=== PATIENT | female | born 1950 | race Caucasian/White ===

== ENCOUNTER 2018-09-16 11:21 | Emergency (ER) | payer MEDICARE ==
[~2018-09-16] VITALS: Ht 152.4 cm; Wt 90.0 kg
[~2018-09-16 11:21] MED LIST: ACETAMINOPHEN500 M1; AMBIEN5 MG PO; AVELOX400 MG PO; BAYER ASA325 MG PO; BUSPIRONE5 MG OR; CELEXA20 MG OR; CLONAZEPAM1 MG PO; CYCLOBENZAPR10 MG OR; FUROSEMIDE20 MG PO; GABAPENTIN300 MG PO; GLIPIZIDE5 MG PO; GLYB/METFO5 MG/500 M OR; IMDUR30 MG PO; ISOSORB DIN30 MG PO; ISOSORB MONO30 MG OR; KLOR-CON 1010 ME1 OR; KLOR-CON 1010 ME1 PO; LASIX 20 MG20 MG/TAB PO; LEVOTHYROXIN50 MCG OR; MAXZIDE-25MG1 COMBO PO; MEDROL4 M1 PO; METFORMIN1000 MG PO; METFORMIN500 MG PO; METOPROL TAR25 MG OR; METOPROL TAR50 MG PO; MIRAPEX0.125 MG PO; MIRTAZAPINE15 MG PO; MIRTAZAPINE30 MG PO; NAPROSYN500 MG PO; PREDNISONE20 MG PO; PROVENTIL0.083 % IN; REQUIP0.25 MG OR; SIMVASTATIN40 MG PO; SYNTHROID50 MCG PO; TRAZODONE50 MG OR; TRIAM/HCTZ1 CAP OR; TRILEPTAL150 M1 OR; TRILEPTAL300 MG PO; ULTRAM50 M1 PO; VALIUM5 MG PO; ZOCOR20 MG OR; [UNRECOGNIZED DRUG - SUPPLY]
[2018-09-16 11:36] LABS: GFR > 60 ML/MIN (>=60 (CALC)); GFR FOR AFR.AMER. > 60 ML/MIN (>=60 (CALC))
[2018-09-16 11:47] LABS: HEMATOCRIT 45.4 % (37.0-47.0); HEMOGLOBIN 14.8 g/dl (12.0-16.0); IMMATURE GRANULOCYTES 0.5 % (0.0-5.0); MEAN CELL VOLUME 88.7 fL CALC (80.0-100.0); MEAN CORPUSCULAR HGB 28.9 pG CALC (26.0-32.0); MEAN CORPUSCULAR HGB CONC 32.6 g/L CALC (32.0-36.0); NEUT# 6.72 thou/uL (2.00-7.15); RED BLOOD COUNT 5.12 mill/uL (4.20-5.60); RED CELL DISTRI WIDTH 14.3 % (11.5-15.5)
[2018-09-16 11:50] LABS: ANION GAP 21 (6-22 (CALC)); BUN 17 mg/dL (8-23); BUN/CREATININE RATIO 19 (12-20 (CALC)); CARBON DIOXIDE 24 mmol/l (22-30); CHLORIDE 92 mmol/l (95-108); CREATININE 0.9 mg/dL (0.5-1.0); POTASSIUM 4.1 mmol/l (3.5-5.1); SODIUM 133 mmol/l (137-146)
[2018-09-16 11:53] LABS: INTERNATIONAL NORMALIZED RATIO 1.1 RATIO (0.7-1.3)
[2018-09-16 12:50] VITALS: BP 152/69
== END 2018-09-16 12:50 | disposition short-term general hospital (02) ==
LOC: ED 11:21
PROVIDERS: Family Medicine
PROC: 0BH17EZ Insertion of Endotracheal Airway into Trachea, Via Natural or Artificial Opening (ICD-10-PCS; principal; 2018-09-16)
DX: I63.9 Cerebral infarction, unspecified (principal); R41.82 Altered mental status, unspecified; R29.709 NIHSS score 9; R47.81 Slurred speech; R53.1 Weakness; E11.9 Type 2 diabetes mellitus without complications; Z79.84 Long term (current) use of oral hypoglycemic drugs; R94.31 Abnormal electrocardiogram [ECG] [EKG]
CPT/HCPCS: J1953; J2150

== ENCOUNTER 2023-02-03 07:25 | Emergency (ER) | payer MEDICARE, MEDICAID ==
[2023-02-03] VITALS (12 sets, daily range): BP systolic 149–177; BP diastolic 69–91
[~2023-02-03] VITALS: Ht 152.4 cm; Wt 69.3 kg
[2023-02-03 07:57] LABS: BASO% 0.2 % (0-3); EOS% 7.3 % (0-8); HEMATOCRIT 42.5 % (37.0-47.0); HEMOGLOBIN 13.4 g/dl (12.0-16.0); IMMATURE GRANULOCYTES 0.2 % (0.0-5.0); LYMPH% 17.7 % (15-41); MEAN CELL VOLUME 94.2 fL CALC (80.0-100.0); MEAN CORPUSCULAR HGB 29.7 pG CALC (26.0-32.0); MEAN CORPUSCULAR HGB CONC 31.5 g/dL CAL (32.0-36.0); NEUT# 8.5 thou/uL (2.00-7.15); NEUT% 67.6 % (42-76); RED BLOOD COUNT 4.51 mill/uL (4.20-5.60); RED CELL DISTRI WIDTH 12.5 % (11.5-15.5)
[2023-02-03 08:08] LABS: ALBUMIN 4.2 g/dL (3.2-5.0); ALKALINE PHOSPHATASE 124 u/l (38-126); BILIRUBIN, TOTAL 0.3 mg/dL (0.02-1.3); BUN 20 mg/dL (8-23); BUN/CREATININE RATIO 32 (12-20 (CALC)); CHLORIDE 108 mmol/l (95-108); CREATININE 0.6 mg/dL (0.5-1.0); GFR FOR AFR.AMER. > 60 ML/MIN (>=60 (CALC)); GFR OTHER RACES > 60 ML/MIN (>=60 (CALC)); POTASSIUM 5.1 mmol/l (3.5-5.1); SGOT/AST 31 u/l (9-36); SODIUM 141 mmol/l (137-146); TOTAL PROTEIN 6.9 g/dL (6.3-8.2)
[2023-02-03 08:10] LABS: ANION GAP 14 (6-22 (CALC)); CARBON DIOXIDE 24 mmol/l (22-30)
[2023-02-03] MEDS ORDERED: GLIPIZIDE10 M2 PO (08:18)
[2023-02-03] MEDS ORDERED: ASPIRINCHW 81MG PO (08:20)
[2023-02-03] MEDS ORDERED: CELECOXIB200 MG (08:22)
[2023-02-03] MEDS ORDERED: DULOXETINE HCL60 MG (08:23)
[2023-02-03] MEDS ORDERED: MELOXICAM15 MG PO (08:24)
[2023-02-03] MEDS ORDERED: GLIPIZIDE10 M3 PO (08:24)
[2023-02-03] MEDS ORDERED: VICTOZA18 MG/3 ML SC (08:25)
[2023-02-03 10:09] LABS: URINE BILIRUBIN - DIPSTICK NEGATIVE (NEGATIVE); URINE BLOOD DIPSTICK NEGATIVE (NEGATIVE); URINE COLOR YELLOW; URINE GLUCOSE - DIPSTICK >=1000 mg/dL (NEGATIVE); URINE KETONE NEGATIVE (NEGATIVE); URINE LEUK ESTERASE NEGATIVE (NEGATIVE); URINE NITRITE - DIPSTICK NEGATIVE (Negative); URINE PROTEIN - DIPSTICK NEGATIVE (NEG-TRACE); URINE UROBILINOGEN - DIPSTICK 0.2 E.U./dL (0.2)
[2023-02-03 10:13] LABS: URINE BACTERIA MANY hpf; URINE SQUAMOUS EPITHELIAL CELL FEW EPI/hpf (0-FEW); URINE WBC 0-2 WBC/hpf (0-5)
[2023-02-03] MEDS ORDERED: IMODIUM A-D2 M3 PO (10:51)
[2023-02-03] MEDS ORDERED: NITROFURANTN100 M2 PO (10:51)
== END 2023-02-03 13:50 | disposition home or self-care (01) ==
LOC: ED 07:25
PROVIDERS: Family Medicine
DX: R19.7 Diarrhea, unspecified (principal); N39.0 Urinary tract infection, site not specified; I10 Essential (primary) hypertension; E11.9 Type 2 diabetes mellitus without complications; E03.9 Hypothyroidism, unspecified; J44.9 Chronic obstructive pulmonary disease, unspecified; F32.A Depression, unspecified; E78.5 Hyperlipidemia, unspecified; I25.2 Old myocardial infarction; B96.20 Unspecified Escherichia coli [E. coli] as the cause of diseases classified elsewhere; Z85.118 Personal history of other malignant neoplasm of bronchus and lung; Z79.84 Long term (current) use of oral hypoglycemic drugs

== ENCOUNTER 2023-06-14 14:24 | Observation (INO) | payer MEDICARE, MEDICAID ==
[~2023-06-14] VITALS: Ht 152.4 cm; Wt 71.2 kg
[2023-06-14] VITALS (13 sets, daily range): BP systolic 130–177; BP diastolic 83–118
[~2023-06-14 14:24] MED LIST changes: +ASPIRINCHW 81MG PO; +CELECOXIB200 MG; +DULOXETINE HCL60 MG; +GLIPIZIDE10 M2 PO; +GLIPIZIDE10 M3 PO; +IMODIUM A-D2 M3 PO; +MELOXICAM15 MG PO; +NITROFURANTN100 M2 PO; +VICTOZA18 MG/3 ML SC
--- NOTE | 2023-06-14 14:24 | NUR ---
PATIENT ARRIEVED TO THE ED VIA EMS. PATIENT WAS SHOPPING AT [employer] AND IT WAS REPORTED THAT SHE WAS HAVING SLURRED SPEECH AND LEFT SIDED FACIAL DROOP. UPON ARRIVAL TO THE ED, STAFF WERE INFORMED BY PHYSICAL THERAPIST ASSISTANT THAT THIS HAS BEEN ONGOING FOR 2 WEEKS. TELENUROLOGIST ASSESSED PATIENT UPON ARRIVAL.
--- NOTE | 2023-06-14 15:17 | NUR ---
PATIENT REFUSING TO HAVE LABS DRAWN BY SENIOR NETWORK SECURITY ENGINEER. DR. LARRY MADE AWARE.
[2023-06-14 16:04] LABS: BASO% 0.3 % (0-3); EOS% 2.5 % (0-8); HEMATOCRIT 42.2 % (37.0-47.0); HEMOGLOBIN 13.8 g/dl (12.0-16.0); IMMATURE GRANULOCYTES 0.2 % (0.0-5.0); LYMPH% 20.3 % (15-41); MEAN CELL VOLUME 89.4 fL CALC (80.0-100.0); MEAN CORPUSCULAR HGB 29.2 pG CALC (26.0-32.0); MEAN CORPUSCULAR HGB CONC 32.7 g/dL CAL (32.0-36.0); NEUT# 7.84 thou/uL (2.00-7.15); NEUT% 70.7 % (42-76); RED BLOOD COUNT 4.72 mill/uL (4.20-5.60); RED CELL DISTRI WIDTH 12.3 % (11.5-15.5)
[2023-06-14 16:15] LABS: ALBUMIN 4.3 g/dL (3.2-5.0); ALKALINE PHOSPHATASE 102 u/l (38-126); BUN 19 mg/dL (8-23); BUN/CREATININE RATIO 23 (12-20 (CALC)); CALCULATED LDLCHOLESTEROL 60 mg/dL (62-129 (CALC)); CARBON DIOXIDE 22 mmol/l (22-30); CHLORIDE 105 mmol/l (95-108); CHOLESTEROL HDL RATIO 3.1 (<4.4 (CALC)); CREATININE 0.8 mg/dL (0.5-1.0); GFR FOR AFR.AMER. > 60 ML/MIN (>=60 (CALC)); GFR OTHER RACES > 60 ML/MIN (>=60 (CALC)); HDL CHOLESTEROL 40 mg/dL (39.0-59.0); SGOT/AST 37 u/l (9-36); SODIUM 139 mmol/l (137-146); TOTAL CHOLESTEROL 123 mg/dl (0-199); TOTAL PROTEIN 7.5 g/dL (6.3-8.2); TOTAL TRIGLYCERIDES 116 mg/dl (0-149); VLDL CHOLESTROL 23 mg/dl (0-48 (CALC))
[2023-06-14 16:16] LABS: INTERNATIONAL NORMALIZED RATIO 1.1 RATIO (0.7-1.3); PROTHROMBIN TIME 10.4 SECONDS (9.0-12.5)
[2023-06-14 16:17] LABS: ANION GAP 18 (6-22 (CALC)); BILIRUBIN, TOTAL 0.6 mg/dL (0.02-1.3); POTASSIUM 5.9 mmol/l (3.5-5.1)
--- NOTE | 2023-06-14 16:56 | NUR ---
DR. PETER AT THE BEDSIDE WITH THE PATIENTS COUSINS. MORE INFORMATION GIVEN BY THE FAMILY. PATIENT DROVER HER OWN CAR TO [facility] TODAY. FAMILY STATES THAT PATIENT WAS ALERT AND ORIENTED X3. THIS NEW ONSET OF CONFUSION AND GARBBLED SPEECH THEY WERE UNAWARE OF.
[2023-06-14 17:10] LABS: URINE BILIRUBIN - DIPSTICK Negative (NEGATIVE); URINE BLOOD DIPSTICK Negative (NEGATIVE); URINE GLUCOSE - DIPSTICK 250 mg/dL (NEGATIVE); URINE KETONE 15 mg/dL (NEGATIVE); URINE LEUK ESTERASE Negative (NEGATIVE); URINE NITRITE - DIPSTICK Negative (Negative); URINE PH 6.5 (4.5-8.0); URINE PROTEIN - DIPSTICK Trace mg/dL (NEG-TRACE)
[2023-06-14 17:11] LABS: URINE COLOR Yellow
--- NOTE | 2023-06-14 18:24 | NUR ---
PT IS IN ROOM. FAMILY AT BEDSIDE. VITALS ASSESSED.
--- NOTE | 2023-06-14 20:00 | NUR ---
report called to jose tipton; pt stable and nad at bedside at this time
--- NOTE | 2023-06-14 22:00 | NUR ---
RECEIVED REPORT FROM ED IRA JEAN, PATIENT TRANSPORTED VIA BED, PATIENT ALERT TO NAME NAME JUSTIN BARKLEY THAT SHE IS IN THE HOSPITAL, BUT WRONG DATE OF , HX DEMENTIA, PATIENT ANXIOUS, DIFFICULT TO REDIRECT AND REFUSED LOKELMA ONLY WANTED SODA, PATIENT IV ON LAC G 20 PATENT FLUSHES WELL, ON TELMETRY, PATINET INCONTINENT OF BOWEL, BED ALARM IN PLACE.
[2023-06-15 00:10] VITALS: BP 149/78
--- NOTE | 2023-06-15 00:37 | NUR ---
PATIENT RESTING IN BED, NOT IN DISTRESS, BREATHING EVEN UNALBORED CALL LIGHT IN REACH, BED ALARM IN PLACE.
--- NOTE | 2023-06-15 00:40 | NUR ---
PATIENT HAS A DUE TROPONIN, PATIENT REFUSED.
--- NOTE | 2023-06-15 03:50 | NUR ---
PATIENT RESTING IN BED, WITH EYES CLOSED, BREATHING EVEN UNLABORED NOT IN DISTRESSED, CALL LIGHT IN REACH.
[2023-06-15 04:23] VITALS: BP 139/57
--- NOTE | 2023-06-15 06:26 | NUR ---
MRI SCREENING DONE, INFORMATION PROVIDED BY PATIENTS EMERGENCY CONTACT CHRISTY BECAUSE PATIENT UNABLE TO ANSWER R/T DEMENTIA.
--- NOTE | 2023-06-15 06:39 | NUR ---
CALLED [facility], SPOKE TO NADER AND ASK FOR A COPY OF THE PATIENTS MED LIST, STATED WILL CALL BACK ONCE HER PREPARATION CENTER COORDINATOR COMES AROUND 8AM.
[2023-06-15 06:55] VITALS: BP 150/60
[2023-06-15 07:36] LABS: HEMATOCRIT 38.1 % (37.0-47.0); HEMOGLOBIN 12.6 g/dl (12.0-16.0); MEAN CORPUSCULAR HGB 29.4 pG CALC (26.0-32.0); MEAN CORPUSCULAR HGB CONC 33.1 g/dL CAL (32.0-36.0); RED BLOOD COUNT 4.28 mill/uL (4.20-5.60); RED CELL DISTRI WIDTH 12.2 % (11.5-15.5)
[2023-06-15 07:56] LABS: ANION GAP 11 (6-22 (CALC)); BUN 12 mg/dL (8-23); BUN/CREATININE RATIO 18 (12-20 (CALC)); CALCULATED LDLCHOLESTEROL 42 mg/dL (62-129 (CALC)); CARBON DIOXIDE 24 mmol/l (22-30); CHLORIDE 107 mmol/l (95-108); CHOLESTEROL HDL RATIO 3.1 (<4.4 (CALC)); CREATININE 0.7 mg/dL (0.5-1.0); GFR FOR AFR.AMER. > 60 ML/MIN (>=60 (CALC)); GFR OTHER RACES > 60 ML/MIN (>=60 (CALC)); HDL CHOLESTEROL 34 mg/dL (39.0-59.0); MAGNESIUM 1.4 mg/dL (1.6-2.3); SODIUM 138 mmol/l (137-146); TOTAL CHOLESTEROL 104 mg/dl (0-199); TOTAL TRIGLYCERIDES 143 mg/dl (0-149); VLDL CHOLESTROL 29 mg/dl (0-48 (CALC))
--- NOTE | 2023-06-15 08:00 | NUR ---
GOT REPORT FROM CLASSIFICATION CLERK. PATIENT ASSESSED. AOX2 BUT SEEMS FORGETFUL. PATIENT DENIES ANY DISTRESS OR DISCOMFORT. WANTS TO GO HOME ADVISED THAT WE HAD TO WAIT TO DO A IMAGE TEST AND THE DOCTOR. PATIENT VERBALIZED UNDERSTANDING.
[2023-06-15 08:35] LABS: POTASSIUM 4.3 mmol/l (3.5-5.1)
[2023-06-15] MEDS ORDERED: BENZONATATE200 MG PO (10:58)
[2023-06-15] MEDS ORDERED: METOPROLOL TART50 MG PO (11:00)
[2023-06-15] MEDS ORDERED: TYLENOL500 MG PO (11:00)
[2023-06-15 12:00] VITALS: BP 122/96
--- NOTE | 2023-06-15 12:00 | NUR ---
PATIENT IN BED SLEEPING. NO SXS OF DISTRESS. BED ALARM IS ON. CALL LIGHT AND BEDSIDE TABLE WITH IN REACH.
--- NOTE | 2023-06-15 15:38 | NUR ---
Discharge instructions given. Patient verbalizes understanding of same. Discharged in stable condition via Wheelchair to [facility] with *Other. All belongings sent with pt.
== END 2023-06-15 15:38 ==
LOC: ED 14:24 → ED-I 17:04 → ED 17:14 → MS2 17:15
PROVIDERS: Family Medicine; ADMIT Student in an Organized Health Care Education/Training Program; ATTEND Student in an Organized Health Care Education/Training Program
DX: R41.82 Altered mental status, unspecified (principal); R47.81 Slurred speech; R29.810 Facial weakness; I10 Essential (primary) hypertension; E11.9 Type 2 diabetes mellitus without complications; E78.5 Hyperlipidemia, unspecified; F32.A Depression, unspecified; I69.251 Hemiplegia and hemiparesis following other nontraumatic intracranial hemorrhage affecting right dominant side; F03.90 Unspecified dementia, unspecified severity, without behavioral disturbance, psychotic disturbance, mood disturbance, and anxiety; I25.2 Old myocardial infarction; F40.240 Claustrophobia; Z85.118 Personal history of other malignant neoplasm of bronchus and lung; Z79.84 Long term (current) use of oral hypoglycemic drugs

== ENCOUNTER 2024-04-18 10:51 | Observation (INO) | payer MEDICARE, MEDICAID ==
[2024-04-18] VITALS (31 sets, daily range): BP systolic 96–144; BP diastolic 49–86
[~2024-04-18] VITALS: Ht 152.4 cm; Wt 66.4 kg
[~2024-04-18 10:51] MED LIST changes: +BACTRIM DS1 TAB PO; +BENZONATATE200 MG PO; -CELECOXIB200 MG; +CELECOXIB200 MG PO; +DIVALPROEX125 MG PO; +MEMANTINE HYDRO10 MG PO; +METOPROLOL TART50 MG PO; +MIDODRINE HYDR2.5 MG PO; +Magnesium PO; +OZEMPIC2 MG SC; +TYLENOL500 MG PO; +VITAMIN D-32000 UNI1 PO
--- NOTE | 2024-04-18 10:52 | NUR ---
PT BROUGHT DOWN FROM OUTPATIENT, POST CARDIAC ARREST, PT HR IN THE 60'S, RR 15, ALL VSS, PROVIDER AT BEDSIDE
--- NOTE | 2024-04-18 11:06 | NUR ---
PT ALERT AND SPEAKING, PT REFUSING ABG AT THIS TIME, PROVIDER NOTIFIED, PT VSS, LABS COLLECTED, EKG COMPLETED, PT RESTING IN BED, CALL LIGHT WITHIN REACH, PT DENIES ANY NEEDS, PT UPDATED ON THE PLAN OF CARE, PT VERBALIZED UNDERSTANDING
[2024-04-18 11:11] LABS: BASO% 0.4 % (0-3); HEMATOCRIT 36.7 % (37.0-47.0); HEMOGLOBIN 11.9 g/dl (12.0-16.0); IMMATURE GRANULOCYTES 0.1 % (0.0-5.0); MEAN CELL VOLUME 94.6 fL CALC (80.0-100.0); MEAN CORPUSCULAR HGB 30.7 pG CALC (26.0-32.0); MEAN CORPUSCULAR HGB CONC 32.4 g/dL CAL (32.0-36.0); MONO% 9.6 % (2-13); NEUT# 4.26 thou/uL (2.00-7.15); NEUT% 59.9 % (42-76); RED BLOOD COUNT 3.88 mill/uL (4.20-5.60); RED CELL DISTRI WIDTH 12.9 % (11.5-15.5)
[2024-04-18 11:25] LABS: INTERNATIONAL NORMALIZED RATIO 1.1 RATIO (0.7-1.3)
[2024-04-18 11:26] LABS: ALBUMIN 3.5 g/dL (3.2-5.0); ALKALINE PHOSPHATASE 76 u/l (38-126); ANION GAP 7 (6-22 (CALC)); BILIRUBIN, TOTAL 0.5 mg/dL (0.02-1.3); BUN 16 mg/dL (8-23); BUN/CREATININE RATIO 19 (12-20 (CALC)); CHLORIDE 107 mmol/l (95-108); CREATININE 0.9 mg/dL (0.5-1.0); ESTIMATED GFR 67 ML/MIN (>=90 (CALC)); LIPASE 125 u/l (23-300); MAGNESIUM 1.7 mg/dL (1.6-2.3); POTASSIUM 4.9 mmol/l (3.5-5.1); SGOT/AST 27 u/l (9-36); SODIUM 136 mmol/l (137-146); TOTAL PROTEIN 6.2 g/dL (6.3-8.2)
[2024-04-18 11:27] LABS: CARBON DIOXIDE 27 mmol/l (22-30); PROTHROMBIN TIME 10.7 SECONDS (9.0-12.5)
[2024-04-18] MEDS ORDERED: DEXTROSE 50% 50 ML/SYR IV ONE (11:40)
[2024-04-18 11:57] LABS: TSH, 3RD GENERATION 3.02 uIU/mL (0.47 - 4.68)
--- NOTE | 2024-04-18 12:02 | NUR ---
RETURNED FROM CT. PT REMAINS ALERT AND ORIENTED X4. PT REQUESTED WARM BLANKET. BLANKET APPLIED. WILL CONTINUE TO MONITOR.
[2024-04-18] MEDS ORDERED: SEROQUEL25 MG PO ×2 (12:36→12:37)
[2024-04-18] MEDS ORDERED: cefTRIAXone SODIUM 2 GM in SODIUM CHLORIDE 0.9% 100 ML IV ONE (12:50)
[2024-04-18] MEDS ORDERED: AZITHROMYCIN 500 MG in SODIUM CHLORIDE 0.9% 250 ML IV ONE (12:50)
[2024-04-18] MEDS ORDERED: ACETAMINOPHEN 325 MG/TAB PO PRN (12:55)
[2024-04-18] MEDS ORDERED: MAGNESIUM HYDROXIDE 30 ML UDC PO PRN (12:55)
[2024-04-18] MEDS ORDERED: SODIUM CHLORIDE 0.9% 1,000 ML IV PRN (12:55)
[2024-04-18] MEDS ORDERED: IPRATROPIUM-Albuterol 0.5MG-2.5MG/3 ML NEB PRN (13:10)
--- NOTE | 2024-04-18 13:28 | NUR ---
SPOKE WITH HEALTH CARE SURROGATE AND UPDATED WITH PATIENT STATUS.
--- NOTE | 2024-04-18 13:30 | NUR ---
ATTEMPTED TO GIVE REPORT TO NURSE. NURSE IN ROOM WITH ANOTHER PATIENT. WILL CALL BACK.
--- NOTE | 2024-04-18 13:57 | NUR ---
ATTEMPTED TO GIVE REPORT AGAIN. NURSE IS NOW DOING A DISCHARGE AND STATES WILL CALL BACK.
--- NOTE | 2024-04-18 14:09 | NUR ---
PT IS NOW BEING CHANGED TO ICU STATUS PER ADMINISTRATION
--- NOTE | 2024-04-18 15:30 | NUR ---
REPORT RECEIVED FROM ED RN. PT BROUGHT TO ICU BY STRETCHER AT 1500. PT ADMITTED AFTER CODE BLUE CALLED AND COMPRESSIONS STARTED. ROSC ACHIEVED. PT CURRENTLY A/O. LUNG SOUNDS DIMINISHED; PT IS ON RA. NSR ON MONITOR. BS ACTIVE. PT HAS PURWIK IN PLACE BUT HAS NOT VOIDED YET. PT REPORTS LAST BM YESTERDAY. PULSES WEAK ALL EXTREMETIES. SKIN W/D/I. PT DENIES ANY PAIN. AFEBRILE. CALL LIGHT IN REACH. VSS. PT AWARE TO CALL STAFF FOR ASSISTANCE AND NOT GET OUT OF BED. BED ALARM ON.
[2024-04-18] MEDS ORDERED: INSULIN LISPRO 100 UNITS/ML ML SC SCH (17:00)
--- NOTE | 2024-04-18 17:29 | NUR ---
PATIENT SITTING UP IN BED EATING. CALL LIGHT IN REACH. VSS.
--- NOTE | 2024-04-18 19:15 | NUR ---
Report received from dayshift nurse. Patient is resting in bed, denies any pain. A&O to self, place, time but does not remember what has happened today. On room air, VS WNL, NSR on tele, purwick in place. Made a patient a frozen meal for dinner. Patient is eating in bed. All needs addressed, call light within reach, bed alarm on.
[2024-04-18] MEDS ORDERED: MEMANTINE Hydrochloride 10 MG/TAB PO SCH (21:00)
[2024-04-18] MEDS ORDERED: ENOXAPARIN SODIUM 40 MG/0.4 ML SYR SC SCH (21:00)
[2024-04-18] MEDS ORDERED: MIDODRINE HCL 5 MG TAB PO SCH (21:00)
--- NOTE | 2024-04-18 22:00 | NUR ---
Patient is sleeping, does not appear to be in any distress. On room air, VS WNL, NSR on tele monitor, purwick in place, IV fluids running as orderd. All needs addressed, call light within reach, bed alarm on.
[2024-04-19] VITALS (11 sets, daily range): BP systolic 100–137; BP diastolic 42–83
--- NOTE | 2024-04-19 02:00 | NUR ---
Patient is resting in bed, denies any pain. Eating chocolate pudding. On room air, VS WNL, NSR on tele monitor, purwick in place, IV fluids running as ordered. All needs addressed, call light within reach, bed alarm on.
--- NOTE | 2024-04-19 04:00 | NUR ---
Patient is sleeping, does not appear to be in any distress. On room air, VS WNL, NSR on tele monitor, purwick in place, IV fluids running as ordered. All needs addressed, call light within reach, bed alarm on.
[2024-04-19 05:07] LABS: BASO% 0.4 % (0-3); EOS% 2.7 % (0-8); HEMATOCRIT 35.7 % (37.0-47.0); HEMOGLOBIN 11.8 g/dl (12.0-16.0); IMMATURE GRANULOCYTES 0.2 % (0.0-5.0); LYMPH% 35.8 % (15-41); MEAN CELL VOLUME 94.2 fL CALC (80.0-100.0); MEAN CORPUSCULAR HGB 31.1 pG CALC (26.0-32.0); MEAN CORPUSCULAR HGB CONC 33.1 g/dL CAL (32.0-36.0); MONO% 9.2 % (2-13); NEUT# 4.21 thou/uL (2.00-7.15); NEUT% 51.7 % (42-76); RED BLOOD COUNT 3.79 mill/uL (4.20-5.60); RED CELL DISTRI WIDTH 12.8 % (11.5-15.5)
[2024-04-19 05:28] LABS: ALBUMIN 3.1 g/dL (3.2-5.0); BILIRUBIN, TOTAL 0.3 mg/dL (0.02-1.3); CHOLESTEROL HDL RATIO 3.2 (<4.4 (CALC)); CREATININE 0.8 mg/dL (0.5-1.0); MAGNESIUM 1.7 mg/dL (1.6-2.3); POTASSIUM 4.7 mmol/l (3.5-5.1); TOTAL PROTEIN 5.8 g/dL (6.3-8.2)
[2024-04-19] MEDS ORDERED: LEVOTHYROXINE SODIUM 50 MCG/TAB PO SCH (06:00)
--- NOTE | 2024-04-19 06:00 | NUR ---
Patient is resting in bed, denies any pain. On room air, VS WNL, NSR on tele monitor, purwick in place, IV fluids running as ordered. All needs addressed, call light within reach, bed alarm on.
[2024-04-19] MEDS ORDERED: AMOX/K CLAV875 M1 PO (06:01)
[2024-04-19 06:25] LABS: URINE BILIRUBIN - DIPSTICK Negative (NEGATIVE); URINE BLOOD DIPSTICK Negative (NEGATIVE); URINE GLUCOSE - DIPSTICK 250 mg/dL (NEGATIVE); URINE KETONE Trace mg/dL (NEGATIVE); URINE LEUK ESTERASE Negative (NEGATIVE); URINE PROTEIN - DIPSTICK Negative (NEG-TRACE); URINE SPECIFIC GRAVITY 1.025; URINE UROBILINOGEN - DIPSTICK 0.2 E.U./dL (0.2)
[2024-04-19 06:26] LABS: URINE COLOR Yellow; URINE NITRITE - DIPSTICK Positive (Negative)
[2024-04-19 06:31] LABS: URINE BACTERIA MANY hpf; URINE RBC 0-2 RBC/hpf (0-5); URINE SQUAMOUS EPITHELIAL CELL FEW EPI/hpf (0-FEW)
--- NOTE | 2024-04-19 07:30 | NUR ---
pt resting in bed with eyes closed; easily aroused; offers no complaints; assessment completed at this time; pt alert and oriented; denies pain; no n/v noted; resp even and unlabored; lungs noted with wheezes; skin color wnl; ra; hr reg; strong pulses; sr on monitor; abd soft with bs present; no bm noted per telegraphic typewriter operator; purewick intact; no urine noted; adult brief cdi; #20 to rac patent with ivf infusing without complication; no redness or edema noted at site; plan of care/meds/discharge explained; breakfast prepped; call light within reach; bed alarm activated for pt safety; will continue to monitor
--- NOTE | 2024-04-19 08:03 | NUR ---
awake; offers no complaints; sr on monitor; call light within reach; will continue to monitor
[2024-04-19] MEDS ORDERED: ZITHROMAX250 MG PO (08:19)
[2024-04-19] MEDS ORDERED: OMNICEF300 MG PO (08:19)
[2024-04-19] MEDS ORDERED: ASPIRIN 81 MG/TAB PO SCH (09:00)
[2024-04-19] MEDS ORDERED: IPRATROPIUM-Albuterol 0.5MG-2.5MG/3 ML NEB SCH (09:30)
--- NOTE | 2024-04-19 10:14 | NUR ---
awake in bed; abt infusing without complication; ok per pharmacy Derrek to admin early; sr on monitor; pt informed of berry picker machine operator time/discharge; call light within reach; will continue to monitor
--- NOTE | 2024-04-19 11:11 | NUR ---
Discharge instructions given. Patient verbalizes understanding of same. Discharged in stable condition via Wheelchair to [facility] with staff. All belongings sent with pt.
--- NOTE | 2024-04-19 11:49 | NUR ---
report called to Nika Christian
[2024-04-19] MEDS ORDERED: cefTRIAXone SODIUM 2 GM in SODIUM CHLORIDE 0.9% 100 ML IV SCH (13:00)
[2024-04-19] MEDS ORDERED: AZITHROMYCIN 500 MG in SODIUM CHLORIDE 0.9% 250 ML IV SCH (14:00)
== END 2024-04-19 11:11 ==
LOC: ED 10:51 → ED-I 11:08 → ED 11:08 → MS2 12:55 → ED 12:55 → ICU 12:55
PROVIDERS: Family Medicine; ADMIT Student in an Organized Health Care Education/Training Program; ATTEND Student in an Organized Health Care Education/Training Program
PROC: 5A12012 Performance of Cardiac Output, Single, Manual (ICD-10-PCS; principal; 2024-04-18)
DX: R55 Syncope and collapse (principal); E11.649 Type 2 diabetes mellitus with hypoglycemia without coma; R00.1 Bradycardia, unspecified; R91.8 Other nonspecific abnormal finding of lung field; I95.1 Orthostatic hypotension; N39.0 Urinary tract infection, site not specified; I10 Essential (primary) hypertension; E11.9 Type 2 diabetes mellitus without complications; I25.10 Atherosclerotic heart disease of native coronary artery without angina pectoris; E03.9 Hypothyroidism, unspecified; F03.90 Unspecified dementia, unspecified severity, without behavioral disturbance, psychotic disturbance, mood disturbance, and anxiety; I25.2 Old myocardial infarction; Z85.118 Personal history of other malignant neoplasm of bronchus and lung; Z79.84 Long term (current) use of oral hypoglycemic drugs; Z20.822 Contact with and (suspected) exposure to COVID-19
CPT/HCPCS: J1650

== ENCOUNTER 2024-04-30 06:35 | Emergency (ER) | payer MEDICARE, MEDICAID ==
[~2024-04-30] VITALS: Ht 152.4 cm; Wt 59.0 kg
[~2024-04-30 06:35] MED LIST changes: +AMOX/K CLAV875 M1 PO; +OMNICEF300 MG PO; +SEROQUEL25 MG PO; +ZITHROMAX250 MG PO
[2024-04-30] MEDS ORDERED: Diph, Acellular Pertussis, Tet 0.5 ML/VIAL (Tdap) SDV IM ONE (06:45)
[2024-04-30 07:51] VITALS: BP 163/75
[2024-04-30 08:00] VITALS: BP 131/110
[2024-04-30 08:30] VITALS: BP 131/110
== END 2024-04-30 08:30 ==
LOC: ED 06:35
PROC: 0HQ1XZZ Repair Face Skin, External Approach (ICD-10-PCS; principal; 2024-04-30)
DX: S01.81XA Laceration without foreign body of other part of head, initial encounter (principal); I10 Essential (primary) hypertension; E11.9 Type 2 diabetes mellitus without complications; F03.90 Unspecified dementia, unspecified severity, without behavioral disturbance, psychotic disturbance, mood disturbance, and anxiety; Z85.118 Personal history of other malignant neoplasm of bronchus and lung; Z79.84 Long term (current) use of oral hypoglycemic drugs; W06.XXXA Fall from bed, initial encounter; Y92.092 Bedroom in other non-institutional residence as the place of occurrence of the external cause

== ENCOUNTER 2024-05-06 20:29 | Emergency (ER) | payer MEDICARE, MEDICAID ==
[2024-05-06] VITALS (12 sets, daily range): BP systolic 141–176; BP diastolic 70–111
[~2024-05-06] VITALS: Ht 149.9 cm; Wt 69.0 kg
== END 2024-05-07 00:05 ==
LOC: ED 20:29
DX: S00.12XA Contusion of left eyelid and periocular area, initial encounter (principal); K08.89 Other specified disorders of teeth and supporting structures; F03.90 Unspecified dementia, unspecified severity, without behavioral disturbance, psychotic disturbance, mood disturbance, and anxiety; I10 Essential (primary) hypertension; E11.9 Type 2 diabetes mellitus without complications; W06.XXXA Fall from bed, initial encounter; Y92.092 Bedroom in other non-institutional residence as the place of occurrence of the external cause; Z91.81 History of falling; Z79.82 Long term (current) use of aspirin; Z85.118 Personal history of other malignant neoplasm of bronchus and lung; Z79.84 Long term (current) use of oral hypoglycemic drugs

== ENCOUNTER 2024-08-28 18:30 | Observation (INO) | payer MEDICARE, OTHER ==
[2024-08-28] VITALS (16 sets, daily range): BP systolic 70–162; BP diastolic 45–135
[~2024-08-28] VITALS: Ht 149.9 cm; Wt 71.6 kg
[~2024-08-28 18:30] MED LIST changes: +CYMBALTA60 MG PO; +SEROQUEL50 MG PO
[2024-08-28] MEDS ORDERED: SODIUM CHLORIDE 0.9% 1,000 ML IV ONE ×6 (18:55→23:20)
[2024-08-28 19:15] LABS: BASO% 0.6 % (0-3); EOS% 2.1 % (0-8); HEMATOCRIT 42.8 % (37.0-47.0); IMMATURE GRANULOCYTES 0.2 % (0.0-5.0); LYMPH% 23.7 % (15-41); MEAN CELL VOLUME 92.2 fL CALC (80.0-100.0); MEAN CORPUSCULAR HGB 30.2 pG CALC (26.0-32.0); MEAN CORPUSCULAR HGB CONC 32.7 g/dL CAL (32.0-36.0); MONO% 7.9 % (2-13); NEUT# 8.86 thou/uL (2.00-7.15); NEUT% 65.5 % (42-76); RED BLOOD COUNT 4.64 mill/uL (4.20-5.60); RED CELL DISTRI WIDTH 12.9 % (11.5-15.5)
[2024-08-28] MEDS ORDERED: ATROPINE SULFATE 0.4 MG/ML IV ONE (19:15)
[2024-08-28] MEDS ORDERED: Iopamidol 370 (Isovue) 76% 100 ML SDV IV ONE (19:15)
[2024-08-28] MEDS ORDERED: CALCIUM GLUCONATE 2 GM in SODIUM CHLORIDE 0.9% 100 ML IV ONE (19:15)
[2024-08-28] MEDS ORDERED: SODIUM CHLORIDE 0.9% 250 ML IV ONE (19:20)
[2024-08-28] MEDS ORDERED: ONDANSETRON HCl 4 MG/2 ML SDV IV ONE (19:25)
[2024-08-28 19:26] LABS: ALBUMIN 4.5 g/dL (3.2-5.0); ALKALINE PHOSPHATASE 120 u/l (38-126); BUN 21 mg/dL (8-23); BUN/CREATININE RATIO 18 (12-20 (CALC)); CARBON DIOXIDE 21 mmol/l (22-30); CHLORIDE 104 mmol/l (95-108); CREATININE 1.2 mg/dL (0.5-1.0); ESTIMATED GFR 47 ML/MIN (>=90 (CALC)); SODIUM 135 mmol/l (137-146); TOTAL PROTEIN 7.7 g/dL (6.3-8.2)
[2024-08-28 19:39] LABS: ANION GAP 16 (6-22 (CALC)); BILIRUBIN, TOTAL 0.6 mg/dL (0.02-1.3); MAGNESIUM 2.4 mg/dL (1.6-2.3); POTASSIUM 6.3 mmol/l (3.5-5.1); SGOT/AST 57 u/l (9-36)
[2024-08-28] MEDS ORDERED: methylPREDNISolone SODIUM SUCC 125 MG/2 ML SDV IV ONE (20:15)
[2024-08-28] MEDS ORDERED: FAMOTIDINE 10MG/ML 2ML SDV IV ONE (20:15)
[2024-08-28] MEDS ORDERED: SODIUM ZIRCONIUM CYCLOSILICATE 10 GM PAK PO ONE (20:15)
[2024-08-28] MEDS ORDERED: INSULIN REGULAR (HUMAN) 100 UNIT/ML INJ IV ONE (20:15)
[2024-08-28] MEDS ORDERED: DEXTROSE 50% 50 ML/SYR IV ONE (20:15)
[2024-08-28] MEDS ORDERED: DiphenhydrAMINE HCL 50 MG/ML SDV IV ONE (20:15)
[2024-08-28] MEDS ORDERED: SODIUM BICARBONATE 8.4% 50 ML/SYR IV ONE (20:15)
[2024-08-28] MEDS ORDERED: Levofloxacin 750 mg Premix 150 ML IV ONE (20:15)
[2024-08-28] MEDS ORDERED: DOXYCYCLINE HYCLATE 100 MG in SODIUM CHLORIDE 0.9% 100 ML IV ONE (20:15)
[2024-08-28] MEDS ORDERED: DEXTROSE 250 ML IV ONE (20:35)
[2024-08-28 20:36] LABS: URINE BILIRUBIN - DIPSTICK Negative (NEGATIVE); URINE BLOOD DIPSTICK Negative (NEGATIVE); URINE GLUCOSE - DIPSTICK 100 mg/dL (NEGATIVE); URINE KETONE Negative (NEGATIVE); URINE LEUK ESTERASE Negative (NEGATIVE); URINE NITRITE - DIPSTICK Negative (Negative); URINE PH 6.5 (4.5-8.0); URINE PROTEIN - DIPSTICK Negative (NEG-TRACE); URINE UROBILINOGEN - DIPSTICK 0.2 E.U./dL (0.2)
[2024-08-28 20:44] LABS: URINE COLOR Yellow
[2024-08-28] MEDS ORDERED: SODIUM CHLORIDE 0.9% 100 ML IV ONE (21:23)
[2024-08-28 23:08] LABS: BILIRUBIN, TOTAL 0.4 mg/dL (0.02-1.3); CREATININE 0.9 mg/dL (0.5-1.0)
[2024-08-28 23:16] LABS: ALBUMIN 3.4 g/dL (3.2-5.0); TOTAL PROTEIN 5.9 g/dL (6.3-8.2)
[2024-08-29] VITALS (15 sets, daily range): BP systolic 56–161; BP diastolic 31–121
[2024-08-29] MEDS ORDERED: AZITHROMYCIN 500 MG in SODIUM CHLORIDE 0.9% 250 ML IV ONE (00:20)
[2024-08-29] MEDS ORDERED: Polyethylene Glycol 3350 17 GM/PKT PO PRN (00:30)
[2024-08-29] MEDS ORDERED: IBUPROFEN 800 MG/TAB PO PRN (00:30)
[2024-08-29] MEDS ORDERED: ALUM & MAG HYDROX-SIMETHICONE 30 ML PO PRN (00:30)
[2024-08-29] MEDS ORDERED: SODIUM CHLORIDE 0.45% 1,000 ML IV PRN (00:30)
[2024-08-29] MEDS ORDERED: ONDANSETRON 4 MG/TAB ODT PO PRN (00:30)
[2024-08-29] MEDS ORDERED: ONDANSETRON HCl 4 MG/2 ML SDV IV PRN (00:30)
[2024-08-29] MEDS ORDERED: FAMOTIDINE 10MG/ML 2ML SDV IV PRN (00:30)
[2024-08-29] MEDS ORDERED: DOXYCYCLINE100 MG PO (09:11)
[2024-08-29] MEDS ORDERED: AZITHROMYCIN 500 MG in SODIUM CHLORIDE 0.9% 250 ML IV SCH (22:00)
== END 2024-08-29 12:56 ==
LOC: ED 18:30 → ED-I 08-29 00:13 → ED 08-29 00:50 → MS2 08-29 00:51
PROVIDERS: Internal Medicine; Nurse Practitioner; ADMIT Internal Medicine; ATTEND Internal Medicine
DX: J18.9 Pneumonia, unspecified organism (principal); I95.9 Hypotension, unspecified; N17.9 Acute kidney failure, unspecified; E11.65 Type 2 diabetes mellitus with hyperglycemia; R00.1 Bradycardia, unspecified; E87.5 Hyperkalemia; I10 Essential (primary) hypertension; F03.90 Unspecified dementia, unspecified severity, without behavioral disturbance, psychotic disturbance, mood disturbance, and anxiety; Z79.84 Long term (current) use of oral hypoglycemic drugs; Z79.85 Long-term (current) use of injectable non-insulin antidiabetic drugs; Z85.118 Personal history of other malignant neoplasm of bronchus and lung
CPT/HCPCS: G0378; J0456; J0461; Q9967